=== PATIENT | female | born 1970 | race African-American/Black ===

== ENCOUNTER 2024-10-11 20:42 | Emergency (ER) | payer OTHER ==
[2024-10-11 21:17] VITALS: BP 131/85; PULSE 81; RESP 19; TEMP 98.9; BMI 25.2
[2024-10-11 21:56] LABS: BASO % 1.5 % (0-2.0); EOS % 1.5 % (0-4.5); HEMATOCRIT 37.1 % (32.4-45.2); HEMOGLOBIN 11.9 GM/dL (10.7-15.3); MCH 26.8 pg (25.7-33.7); MCHC 32.2 g/dl (32.0-36.0); MEAN CELL VOLUME 83.3 fl (80-96); MEAN PLT VOLUME 10.5 fl (7.5-11.1); MONO % 10.2 % (3.8-10.2); NEUT % 40.8 % (42.8-82.8); PLATELET COUNT 99 10^3/uL (134-434); RBC 4.45 M/mm3 (3.60-5.2); RDW 14.5 % (11.6-15.6); WHITE BLOOD COUNT 6.4 K/mm3 (4.0-10.0)
[2024-10-11 22:31] LABS: POTASSIUM 3.9 mmol/L (3.5-5.1)
[2024-10-11 22:33] LABS: CALCIUM 9.1 mg/dL (8.5-10.1)
[2024-10-11 22:34] LABS: ALBUMIN 3.8 g/dl (3.4-5.0); BLOOD UREA NITROGEN 11.5 mg/dL (7-18)
[2024-10-11 22:38] LABS: BILIRUBIN,TOTAL 0.4 mg/dL (0.2-1); TOT PROT 7.2 g/dl (6.4-8.2)
[2024-10-11] MEDS ORDERED: ACETAMINOPHEN 325 MG TABLET (FP) PO ONE (23:19)
[2024-10-11] MEDS ORDERED: ACETAMINOPHEN 325 MG TABLET (FP) ONE (23:39)
== END 2024-10-11 23:56 | disposition home or self-care (01) ==
LOC: JER 20:42
DX: R07.89 Other chest pain (principal); R06.02 Shortness of breath; R20.0 Anesthesia of skin; R20.2 Paresthesia of skin; R51.9 Headache, unspecified; R42 Dizziness and giddiness; Z20.822 Contact with and (suspected) exposure to COVID-19
CPT/HCPCS: 0241U-QW; 36415; 71046-TC-FY; 80053; 84484; 85025; 93005; 93010; 99285-25